=== PATIENT | male | born 1925 | race Caucasian/White ===

== ENCOUNTER 2017-03-04 20:18 | Inpatient (IN) | payer MEDICARE ==
[~2017-03-04] VITALS: Ht 176.5 cm; Wt 64.5 kg
[~2017-03-04 20:18] MED LIST: ASPI-351 PO; CLOP75TA14 PO; Enalapril; LOPRESSOR25 MG PO; NITR0.4T SL; PRA20 PO
--- NOTE | 2017-03-04 20:23 | ED.REPORT ---
HPI-Extremity Problem Lower Date of Service Mar 04, 2017 ED Provider: Devonte Dowling DO The pt is a 89 y/o male w/ a hx of chronic RLE edema and wound presenting into the ED via ambulance complaining of worsening chronic RLE pain and swelling. The pt's PCP instructed him to come to the ED due to recent extension of the redness past his knee. He denies fever and chills. He was recently seen at [facility] for cellulitis and put on antibiotics, possibly Keflex. His symptoms have continued to worsen since. Nursing Notes Stated Complaint: RIGHT FOOT REDNESS AND SWELLING Nursing Notes Reviewed: Yes Allergies: Coded Allergies: No Known Allergies (Unverified Allergy, Unknown, 03/04/17) Scheduled Allopurinol (Allopurinol) 100 Mg Tablet 100 MG PO DAILY Aspirin Chew (Aspirin Chew) 81 Mg Chew 81 MG PO DAILY Clopidogrel (Clopidogrel) 75 Mg Tablet 75 MG PO DAILY Enalapril Maleate (Enalapril Maleate) 5 Mg Tablet 5 MG PO DAILY Metoprolol Tartrate (Metoprolol Tartrate) 25 Mg Tablet 12.5 MG PO BID Pravastatin (Pravastatin) 20 Mg Tablet 20 MG PO HS Tamsulosin (Flomax) 0.4 Mg Capsule 0.4 MG PO HS Scheduled PRN Nitroglycerin SL (Nitroglycerin SL) 0.4 Mg Tab.subl 0.4 MG SL Q5MIN PRN PRN For Chest Pain General Time Seen by MD: 20:23 Chief Complaint Other (RLE edema) Hx Obtained From: Patient Arrived By: Ambulance Onset Occurred: 2 days ago Symptom Duration: Since onset Recent Healthcare: No recent hospitalization, Recent doctor visit Similar Sx Previous: Yes Past Medical History Past Medical History chronic RLE edema and wound kidney stones depression Past Surgical History L eye surgery Smoking History Unknown if Ever Smoker Ambulatory Status Independent Review of Systems Review of Systems Note: RLE redness Constitutional: Denies: Chills, Fever Musculoskeletal: Reports: Extremity pain (RLE ), Extremity swelling (RLE ) Complete sys rev & neg: except as marked. Physical Exam Initial Vital Signs Vital Signs (First) Date Time Temp Pulse Resp B/P Pulse Ox O2 Delivery O2 Flow Rate FiO2 03/04/17 20:28 36.2 69 16 188/79 96 Room Air Initial VS: Reviewed General/Constitutional: Well-developed, Well-nourished Head / Eyes: Atraumatic, Normocephalic, PERRL ENT: Mucous membranes moist, Conjunctiva normal, No scleral icterus Neck: Supple, Non-tender, Full range of motion Respiratory: Breath sounds normal, Clear to auscultation, No respiratory distress Cardiovascular: Regular rate & rhythm, Heart sounds normal, Intact distal pulses Abdomen / GI: Soft, Non-tender Back: No CVA tenderness Skin: Warm, Dry, No cyanosis Neurologic: Alert, Oriented, Nonfocal Psychiatric: Mood/affect normal, Behavior normal, Normal thought content Lower Extremity / Pelvis / MS: Atraumatic, Full range of motion Pitting edema from R proximal patella down to foot Red, warm, and tender to touch No abscess Ankle / Foot: Atraumatic, Full range of motion Interpretation & Diagnostics Interpretation & Diagnostics: PROCEDURE: US VEINOUS LEG DUPLEX UNILATERAL, RIGHT IMPRESSION: No evidence of deep vein thrombosis involving the right lower extremity. Dictated by: Ruth Rodriguez MD, PhD on 03/04/2017 at 22:02 Approved by: Ruth Rodriguez MD, PhD on 03/04/2017 at 22:04 EXAM: US right lower extremity venous Doppler Impression: No evidence for deep venous thrombosis in the veins examined of the right lower extremity. Lab Results Interpretation Result Diagram: 03/04/17203403/04/172034 Test 03/04/17 20:35 03/04/17 22:34 White Blood Count 6.0th/mm3 (3.8-10.1) Red Blood Count 4.52mil/mm3 (4.40-5.80) Hemoglobin 13.9g/dL (13.8-17.2) Hematocrit 42.3% (41.0-50.0) Mean Corpuscular Volume 93.6fL (81-100) Mean Corpuscular Hemoglobin 30.8pg (27.0-35.0) Mean Corpuscular Hemoglobin Concent 32.9% (32.0-37.0) Red Cell Distribution Width 14.2% (12.3-15.4) Platelet Count 192bil/L (150-400) Neutrophils (%) (Auto) 66.1% (40-74) Lymphocytes (%) (Auto) 18.8% (14-46) Monocytes (%) (Auto) 14.1% (4-12) Eosinophils (%) (Auto) 0.8% (0-5) Basophils (%) (Auto) 0% (0-3) Sodium Level 140mEq/L (134-144) Potassium Level 4.1mEq/L (3.5-5.2) Chloride Level 103mEq/L (97-108) Carbon Dioxide Level 24mmol/L (18-29) Blood Urea Nitrogen 29mg/dL (8-27) Creatinine 0.73mg/dL (0.76-1.27) Estimat Glomerular Filtration Rate 108mL/min (>59) Glucose Level 116mg/dL (60-99) Lactic Acid Level 1.0mmol/L (0.4-2.0) Calcium Level 9.8mg/dL (8.5-10.1) Total Bilirubin 0.8mg/dL (0.0-1.2) Aspartate Amino Transf (AST/SGOT) 15U/L (0-50) Alanine Aminotransferase (ALT/SGPT) 13U/L (0-44) Alkaline Phosphatase 83U/L (25-160) Total Protein 7.4g/dL (6.4-8.4) Albumin 4.2g/dL (3.4-5.0) Hold Urine Received (Received) Pulse Oximetry Interpretation Pulse Oximetry Interpretation: 96% on room air Pulse Oximetry: Pulse Ox normal Pulse Oximetry Interpretation: 99% on room air Pulse Oximetry: Pulse Ox normal Pulse Oximetry Interpretation: 99% on room air Pulse Oximetry: Pulse Ox normal Re-Eval/Medical Decision Med Decision/Clinical Course The patient was evidently on an antibiotic, presumably Keflex. However he has been experiencing increased erythema and will now be admitted for antibiotics. Source of Hx: Old records Re-Evaluation/Progress : Time of Eval: 22:47 Patient Status: Condition improved Re-Evaluation/Progress Note: Pt rechecked, who is comfortable. Consultation : Referral / Consult Name: Yehuda Quigley MD Consulted With: Hospitalist Call Returned at: 22:58 Residential Care Officer: Agrees with eval, Agrees with plan, Accepts admit Note: Spoke with Dr. Quigley, hospitalist, regarding pt's case. Dr. Quigley agrees with the evaluation and agrees to admit the pt. Counseled Regarding: Diagnosis, Lab results, Need for admission Discharge & Departure Impression: Primary Impression: Cellulitis Site of cellulitis: extremity Site of cellulitis of extremity: lower extremity Laterality: right Qualified Code: L03.115 - Cellulitis of right lower limb Disposition: ADMITTED TO HOSPITAL Discharge Condition All VS Reviewed: Yes Condition: Stable Scribe Attestation Portions of this note were transcribed by Tre Downing and Kayla Ford. I, Dr. Dowling personally performed the history, physical exam and medical decision-making ; I reviewed and confirmed the accuracy of the information in the transcribed note. Signed by: Florencia Mac, 03/05/17 and 0008. Devonte Dowling DO Mar 04, 2017 20:23 Tre Downing Mar 04, 2017 21:58 KAYLA FORD Mar 04, 2017 23:36 Devonte Dowling DO Mar 04, 2017 20:23 Tre Downing Mar 04, 2017 21:58 KAYLA FORD Mar 04, 2017 23:36
[2017-03-04 20:28] VITALS: BP 188/79; PULSE 69; RESP 16; O2SAT 96
[2017-03-04 20:46] LABS: BASOPHILS % (AUTO) 0 % (0-3); EOSINOPHILS % (AUTO) 0.8 % (0-5); MONOCYTES % (AUTO) 14.1 % (4-12); Mean Corpuscular Hemoglobin 30.8 pg (27.0-35.0); Mean Corpuscular Volume 93.6 fL (81-100); NEUTROPHILS % (AUTO) 66.1 % (40-74); Platelet Count 192 bil/L (150-400)
[2017-03-04] MEDS ORDERED: cefTRIAXone Inj 2,000 MG in Dextrose 5% Minibag Plus 50 ML IV ONE (22:00)
--- NOTE | 2017-03-04 22:05 | DRSVH ---
PROCEDURE: US VEINOUS LEG DUPLEX UNILATERAL, RIGHT INDICATIONS: right leg edema and erythema TECHNIQUE: Real-time imaging, as well as color and pulse Doppler interrogation, were performed of the lower extr emity deep veins from the inguinal ligament to the popliteal fossa. COMPARISON: None. FINDINGS: The deep veins are normally compressible, and free of intraluminal thrombus. Color and pu lse Doppler demonstrate normal phasic intraluminal flow. There is normal augmentation response to di stal compression maneuver. IMPRESSION: No evidence of deep vein thrombosis involving the right lower extremity. Dictated by: Ruth Rodriguez MD, PhD on 03/04/2017 at 22:02 Approved by: Ruth Rodriguez MD, PhD on 03/04/2017 at 22:04
[2017-03-04] MEDS ORDERED: Vancomycin Inj 1,500 MG in 0.9% Sodium Chloride 500 ML IV ONE (22:16)
[2017-03-04 22:43] VITALS: BP 167/73; PULSE 68; RESP 16; O2SAT 99
[2017-03-04 23:04] VITALS: BP 167/73; PULSE 68; RESP 16; O2SAT 99
[2017-03-04] MEDS ORDERED: Polyethylene Glycol (PEG) 17 Gm Powder PO PRN (23:15)
[2017-03-04] MEDS ORDERED: Alum-Mag Hydrox-Simeth 30 mL Suspension PO PRN (23:15)
[2017-03-04] MEDS ORDERED: Ondansetron 2 mg/mL 2 mL Inj IVPUSH PRN (23:15)
--- NOTE | 2017-03-04 23:25 | PCM.HPMED ---
Subjective Date of Service Mar 04, 2017 Primary Provider: Admitting Physician: Yehuda Quigley MD Primary Care Physician: Opal Fontanez MD Attending Physician: Yehuda Quigley MD Admit Status: From the Emergency Department, Remote Telemetry Chief Complaint: Bilateral lower extremity cellulitis History of Present Illness: Mr. Strickland is a pleasant, yet not reliable historian, that presented to [facility] at the request of his primary care provider for suspected ongoing and worsening of bilateral lower extremity cellulitis, R > L. he was admitted for evaluation and treatment of bilateral lower extremity cellulitis in the setting of failed outpatient therapy. Hospital day 1 Mr. Strickland is unable to provide many details about his medical history, including other medical conditions that he has been diagnosed with, and is unable to answer succinctly to questions proposed. He does recall he was recently seen [facility] for his right lower extremity, which he says was infected. He states his symptoms began approximately 2 months ago, where he noticed some punctate lesions of unknown etiology that began weeping. He says he has received antibiotics in the past, but is unable to recall any of the names. He states that while he was at [facility], they were recommending that they place what sounds to be like a PICC line, but he refused , and was discharged on oral medications. Again, he is unable to recall the name or any specifics about outpatient medication. It also sounds as if he refused to be seen at the wound care center, due to a complication in the paperwork that they were requesting that he sign. He states that he has been taking care of the wounds himself, and denies any associated fever, chills, nausea, vomiting, abdominal pain, or any increase in pain of bilateral lower extremities. He does make a note of urinary frequency and difficulty, and he shares his experience with catheterization at [facility], and at that point in time, he noticed blood in his urine. He states that he no longer sees blood in his urine, but reports that he frequently has to get up at night to urinate. Denies any associated dysuria. In the ED, temperature 36.2, pulse 69, respiratory rate 16, blood pressure 180/ 79, 96% on room air; initial labs revealed WBC 6.0, hemoglobin 13.9, creatinine 0.73, lactic acid 1.0. Blood cultures were obtained and sent to the lab. Right venous duplex was obtained, without evidence of DVT. He was transferred to [facility] in [place] condition Review of Systems: Complete ROS obtained; pertinent positives and negatives as noted above Allergies Coded Allergies: No Known Allergies (Unverified Allergy, Unknown, 03/04/17) Home Medications Patient is unable to recall many of his home medications, but is able to recall Plavix Per ED documentation: ([Enalapril]) 5 MG DAILY Aspirin-Expunged Drug, Do Not Renew! (Aspirin-Expunged Drug, Do Not Renew!) 325 Mg Tablet 81 MG PO DAILY Clopidogrel-Expunged Drug, Do Not Renew! (Plavix-Expunged Drug, Do Not Renew!) 75 Mg Tablet 75 MG PO DAILY Metoprolol Tart-Expunged Drug, Do Not Renew! (Metoprolol Tart-Expunged Drug, Do Not Renew!) 25 Mg Tab 25 MG PO BID Nitroglycerin-Expunged Drug, Do Not Renew! (Nitroglycerin SL-Expunged Drug, Do Not Renew!) 0.4 Mg Tab.subl 0.4 MG SL PRN Pravastatin-Expunged Drug, Do Not Renew! (Pravachol-Expunged Drug, Do Not Renew! ) 20 Mg Tab 20 MG PO DAILY He is unable to recall any of the names of the previous antibiotics he has been prescribed. [facility] Patient is quite unsure of his past medical history, and cannot state any specific condition status post primary care is following him for He does recall his recent hospitalization at [place] for lower extremity cellulitis Denies any history of myocardial infarction, asthma, reflux, stroke Surgical History Unable to accurately report any seizure if he has had; denies any surgical interventions at most recent [place] [facility] admission Per ED documentation reported left eye surgery Family History Reports myocardial infarctions and heart disease Social History Hx Alcohol Use: No Hx Substance Use: No Hx Tobacco Use: No Living Arrangement: with Family (with at [place]) Exam Vital Signs Vital Sign - Last Date Time Temp Pulse Resp B/P Pulse Ox O2 Delivery O2 Flow Rate FiO2 03/04/17 23:04 36.2 68 16 167/73 99 Room Air Exam General: Alert, and oriented, pleasant, poor historian; no acute distress HEENT: Atraumatic, sclera anicteric, membranes moist Cardiac: Regular rhythm appreciated with approximately 70 bpm; no murmurs at time of examination Respiratory: Adequate airflow all mabry, no wheeze or rhonchi appreciated Abdomen: Thin, soft, nondistended, nontender Skin: Warm and dry Pulses: Radial equal and intact; bilateral dorsal pedis not palpable secondary to edema Extremities: Bilateral lower extremity erythema extending from mid tibial region to dorsi, with multiple sites of weeping and excoriation, no signs of active bleeding, patient reports these areas is nontender; poor nail hygiene; multiple small breaks in skin noticed bilaterally; bandages of left lower extremity were saturated without evidence of bleed MSK: Patient able to move or 4 extremities against gravity Neuro: Cranial nerves II through XII grossly intact, facial expression symmetric , speech without slurring Psych: Convoluted answers to some questionings, answers were somewhat appropriate but lacked in detail and were not succinct; limited insight and judgment based on advancement of symptoms Lab and Diagnostics Result Diagram: 03/04/17203403/04/172034 Assessment & Plan Mr. Strickland is a pleasant, yet not reliable historian, that presented to [facility] at the request of his primary care provider for suspected ongoing and worsening of bilateral lower extremity cellulitis, R > L. he was admitted for evaluation and treatment of bilateral lower extremity cellulitis in the setting of failed outpatient therapy. Hospital day 1 Bilateral lower extremity non-purulent cellulitis, acute, present on admission. Under evaluation - Patient reports recent hospitalization at [facility] for right lower extremity cellulitis - Was seen by PCP day of admission, recommended to go to nearest ED - Patient unable to recall outpatient medications; and denies any follow-up with wound care; denies any h/o DM or neuropathy - In ED, recv'd ceftriaxone and vancomycin - Continued: Ceftriaxone and vancomycin - Await blood cultures - ASO titer, S. pneu Ag - Labs: PCT, electrolytes, WBC - MRSA swab - Wound care consultation - Consider infectious disease consultation if no improvement in symptoms - Records request to [place] placed - PT eval for mobility Increase urinary frequency without dysuria, chronicity unknown. Under evaluation - Patient reports recent hematuria and nocturia without dysuria - DDx: May be secondary to PPH considering patient age; also consideration of UTI - UA with culture if indicated - Recommend outpatient follow-up if no infectious cause found Goals of care. - Patient appeared confused about CODE STATUS - Stated he "wants everything done" but "without heroic measures" - He did not seem to understand that CPR/intubation can be considered heroic measures - He wants to defer decision to , whom is not present - He states he has paperwork "somewhere" but "wants to try" if something were to happen - MMSE for eval for dementia given patient's inability to recall recent health history and inability to make decisions - Consider palliative consult patient remains in hospital through weekend - Recommend POLST completion PRN: Bowel/fever/pain/antiemetic DVT: Heparin every 8 Diet: General GI: Not indicated - IVF: NS 100 CODE STATUS: Full code Patient status: Due to severity of presenting symptoms, risk of adverse events, and likely course of care, anticipated length of stay is greater than 2 midnights; patient admitted as inpatient Pain Evaluation: Adequate Pain Control GI Prophylaxis: Not indicated VTE Prophylaxis: Sub-Q Heparin (Unfractionated) Resuscitation Status: CPR: Attempt Resuscitation Attending Statement The patient was seen and examined together with Dr. Ma on 03/04 and I agree with the history, exam and plan as outlined in the note above. Bilateral redness due to venous stasis changes but I believe has persistent or recurrent right leg cellulitis and agree with IV Antibiotics . Yesenia Ma DO Mar 04, 2017 23:25 Yehuda Quigley MD Mar 05, 2017 00:37
[2017-03-04] MEDS ORDERED: ENAL5TAB PO (23:40)
[2017-03-04] MEDS ORDERED: NITR0.4T6 SL (23:41)
[2017-03-04] MEDS ORDERED: CLOP75TA28 PO (23:41)
[2017-03-04] MEDS ORDERED: ZYL100 PO (23:43)
[2017-03-04] MEDS ORDERED: METO25TA6 PO (23:44)
[2017-03-04] MEDS ORDERED: TAMS0.4C98 PO (23:44)
[2017-03-04] MEDS ORDERED: PRAV20TA2 PO (23:44)
[2017-03-04] MEDS ORDERED: ASPI81TA3 PO (23:45)
[2017-03-05] VITALS (7 sets, daily range): BP systolic 129–185; BP diastolic 52–99; PULSE 60–87; RESP 16–18; O2SAT 94–100
--- NOTE | 2017-03-05 00:15 | NUR ---
Admit Pt. arrived on floor at 2355. Pt. was alert and oriented x3. IV Vancomycin going through peripheral IV. Pt. is watching orientation video. Pt. was oriented to room by MACHINIST HELPER. Pt. used commode and had a BM. Will continue to monitor.
[2017-03-05] MEDS: Heparin 5,000 Unit/mL Inj SUBQ SCH ×3 (00:30→16:30)
--- NOTE | 2017-03-05 01:17 | PCM.CONPHA ---
Subjective Date of Service: Mar 05, 2017 Requesting Provider: Yesenia Ma DO Bilateral lower extremity cellulitis Reason for Pharmacy Consult: Vancomycin Dosing Objective Vital Signs Date Time Temp Pulse Resp B/P Pulse Ox O2 Delivery O2 Flow Rate FiO2 03/04/17 23:04 36.2 68 16 167/73 99 Room Air 03/04/17 22:43 68 16 167/73 99 03/04/17 20:28 36.2 69 16 188/79 96 Room Air Weight (Kilograms): 65.91 Height (Feet): 5 Height (Inches): 10 Test 03/04/17 20:35 03/04/17 22:34 White Blood Count 6.0th/mm3 (3.8-10.1) Red Blood Count 4.52mil/mm3 (4.40-5.80) Hemoglobin 13.9g/dL (13.8-17.2) Hematocrit 42.3% (41.0-50.0) Mean Corpuscular Volume 93.6fL (81-100) Mean Corpuscular Hemoglobin 30.8pg (27.0-35.0) Mean Corpuscular Hemoglobin Concent 32.9% (32.0-37.0) Red Cell Distribution Width 14.2% (12.3-15.4) Platelet Count 192bil/L (150-400) Neutrophils (%) (Auto) 66.1% (40-74) Lymphocytes (%) (Auto) 18.8% (14-46) Monocytes (%) (Auto) 14.1% (4-12) Eosinophils (%) (Auto) 0.8% (0-5) Basophils (%) (Auto) 0% (0-3) Sodium Level 140mEq/L (134-144) Potassium Level 4.1mEq/L (3.5-5.2) Chloride Level 103mEq/L (97-108) Carbon Dioxide Level 24mmol/L (18-29) Blood Urea Nitrogen 29mg/dL (8-27) Creatinine 0.73mg/dL (0.76-1.27) Estimat Glomerular Filtration Rate 108mL/min (>59) Glucose Level 116mg/dL (60-99) Lactic Acid Level 1.0mmol/L (0.4-2.0) Calcium Level 9.8mg/dL (8.5-10.1) Total Bilirubin 0.8mg/dL (0.0-1.2) Aspartate Amino Transf (AST/SGOT) 15U/L (0-50) Alanine Aminotransferase (ALT/SGPT) 13U/L (0-44) Alkaline Phosphatase 83U/L (25-160) Total Protein 7.4g/dL (6.4-8.4) Albumin 4.2g/dL (3.4-5.0) Procalcitonin 0.05ng/mL (0.00-0.08) Hold Urine Received (Received) Assessment/Plan Assessment/Plan A: * Vancomycin dosing by pharmacy for 89 y/o man with bilateral lower extremity non-purulent cellulitis * The patient was given a 1500 mg IV vancomycin dose in the ED * He is also being started on ceftriaxone * Estimated CrCl for this patient is 64 mL/min (Cockcroft & Gault) * Estimated vancomycin half-life is 12 hours and estimated Vd is 46 liters P: * Starting vancomycin 500 mg IV every 12 hours * Target a vancomycin trough range of 10 - 15 mcg/mL * Drawing a trough level prior to the fourth dose Thank you. Pharmacy will continue to follow this patient. Delfina Edwards, PharmD Delfina Edwards Mar 05, 2017 01:17
[2017-03-05] MEDS: 0.9% Sodium Chloride 1,000 ML IV SCH ×3 (01:25→22:56)
[2017-03-05 06:25] LABS: BASOPHILS % (AUTO) 0 % (0-3); EOSINOPHILS % (AUTO) 2.9 % (0-5); MONOCYTES % (AUTO) 19.2 % (4-12); Mean Corpuscular Hemoglobin 30.8 pg (27.0-35.0); Mean Corpuscular Volume 94.2 fL (81-100); NEUTROPHILS % (AUTO) 61.1 % (40-74); Platelet Count 179 bil/L (150-400)
[2017-03-05 06:45] LABS: Magnesium 2.1 mg/dL (1.6-2.6); Phosphorus 2.9 mg/dL (2.5-4.9)
[2017-03-05] MEDS: Vancomycin Dose per Pharmacist XX SCH (08:30)
[2017-03-05] MEDS: Vancomycin Inj 500 MG in 0.9% Sodium Chloride 100 ML IV SCH (11:35)
--- NOTE | 2017-03-05 12:56 | PCM.PNMED ---
Subjective Date of Service Mar 05, 2017 Subjective Patient is seen and examined. His perseverating on his Acer[employer] and animals, does not seem to recall many details about his history appears to have both short-term and long-term loss. [facility] He needs to figure out how to self his property. He did not answer many questions about his cellulitis and what kind of treatment was done in the past. Unable to provide health history or medication history. Exam Vital Signs Vital Sign - Last Date Time Temp Pulse Resp B/P Pulse Ox O2 Delivery O2 Flow Rate FiO2 03/05/17 08:00 61 03/05/17 06:00 36.5 16 159/68 98 Room Air Intake and Output 03/04/17 03/04/17 03/05/17 Cumulative From/Thru 15:00 23:00 07:00 03/04/17 20:28 - 03/05/17 06:52 Intake Total 1091 ml 1091 ml Output Total 325 ml 325 ml Balance 766 ml 766 ml Intake Oral 100 ml 100 ml IV Total 991 ml 991 ml Output Urine Total 325 ml 325 ml # Voids 1 1 # Bowel Movements 1 1 Exam Gen. pleasant elderly male HEENT normocephalic, atraumatic Skin: Erythema spreading all the way up into mid thigh on the right side side medially, and the left side it slightly about the knee posteriorly but not as bad. 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 Strickland is a pleasant, yet not reliable historian, that presented to [facility] at the request of his primary care provider for suspected ongoing and worsening of bilateral lower extremity cellulitis, R > L. he was admitted for evaluation and treatment of bilateral lower extremity cellulitis in the setting of failed outpatient therapy. Hospital day 1 Bilateral lower extremity non-purulent cellulitis, acute, present on admission. Under evaluation - Patient reports recent hospitalization at [facility] for right lower extremity cellulitis - Was seen by PCP day of admission, recommended to go to nearest ED - Patient unable to recall outpatient medications; and denies any follow-up with wound care; denies any h/o DM or neuropathy - In ED, recv'd ceftriaxone and vancomycin - Continued: Ceftriaxone and vancomycin - Await blood cultures - ASO titer, S. pneu Ag - Labs: PCT, electrolytes, WBC - MRSA swab - Wound care consultation - Consider infectious disease consultation if no improvement in symptoms - Records request to [place] placed - PT eval for mobility -- Requested PCP records and his [facility], visit records -- Ordered DVT ultrasound of the left leg: Negative Increase urinary frequency without dysuria, chronicity unknown. Under evaluation - Patient reports recent hematuria and nocturia without dysuria - DDx: May be secondary to PPH considering patient age; also consideration of UTI - UA with culture if indicated - Recommend outpatient follow-up if no infectious cause found Goals of care. - Patient appeared confused about CODE STATUS - Stated he "wants everything done" but "without heroic measures" - He did not seem to understand that CPR/intubation can be considered heroic measures - He wants to defer decision to , whom is not present - He states he has paperwork "somewhere" but "wants to try" if something were to happen - Consider palliative consult patient remains in hospital through weekend - Recommend POLST completion -- Patient has no assigned power of banking attorney. -- Called son Khoa at his home phone number, he says that his goal is that patient goes back to living in an independent setting as before. He feels that his dad may have suffered a small stroke and some left-sided arm weakness as a result few days ago while visiting [facility]. But generally does not think his dad had any medical attention for it, he also says that his dad declined wound care follow-up. Patient does receive home care to help per khoa. PRN: Bowel/fever/pain/antiemetic DVT: Heparin every 8 Diet: General GI: Not indicated - IVF: NS 50 CODE STATUS: Full code Patient status: Due to severity of presenting symptoms, risk of adverse events, and likely course of care, anticipated length of stay is greater than 2 midnights; patient admitted as inpatient Pain Evaluation: Adequate Pain Control GI Prophylaxis: Not indicated VTE Prophylaxis: Sub-Q Heparin (Unfractionated) Resuscitation Status: CPR: Attempt Resuscitation Bettie Slaughter DO Mar 05, 2017 09:48
--- NOTE | 2017-03-05 13:00 | NUR ---
Evaluation completed. Please go to "Notes" then click on "Assessments and Notes" (bottom left corner of screen). Then select appropriate discipline tab on top of screen.
--- NOTE | 2017-03-05 13:54 | NUR ---
Social Work: Initial assessment Data & Assessment: EMR reviewed. Pt is a 89 y/o male admitted for cellulitis right leg per H&P. Pt's insurance is [employer] by [facility] and PCP is Opal Fontanez MD. SW met with pt at bedside to complete initial assessment. SW role explained role and discussed discharge planning. Pt was alert and oriented. Pt has no VA or LTC insurance. Pt has no history of stay at a SNF. PT recommended that pt continue HH services at discharge. Pt stated he currently has HH services through [facility]. SW called to confirm pt is open with RN/OT/CNC MANAGER through [facility]. Pt has completed DPOA/advanced directive and SW encouraged pt to provide a copy to the hospital. Pt confirmed DPOA is son Kyree. Pt lives in a 1-story home with two external steps leading to the entrance. Pt lives at home with use of DME (walker). Pt states that he drives. Pt is independent at baseline. Pt's currently resides at [facility]. Pt confirmed son Kyree (DPOA) will provide transport via POV at time of discharge. Social work will continue to follow Plan: Pt will likely discharge home with resume [facility] and continue RN/PT/CNC MANAGER. Pt's son will provide transport via POV at time of discharge. Social work will continue to follow. JOHN Ho
--- NOTE | 2017-03-05 16:10 | DRSVH ---
PROCEDURE: US VEINOUS LEG DUPLEX UNILATERAL, LEFT INDICATIONS: cellulits, swelling TECHNIQUE: Real-time imaging, as well as color and pulse Doppler interrogation, were performed of the lower extr emity deep veins from the inguinal ligament to the popliteal fossa. COMPARISON: None. FINDINGS: The deep veins are normally compressible, and free of intraluminal thrombus. Color and pu lse Doppler demonstrate normal phasic intraluminal flow. There is normal augmentation response to di stal compression maneuver. IMPRESSION: No DVT found left leg. Dictated by: Bowen Marcum M.D. on 03/05/2017 at 16:08 Approved by: Bowen Marcum M.D. on 03/05/2017 at 16:08
--- NOTE | 2017-03-05 18:22 | NUR ---
Skin- Patient has redness in both lower extremities with some scabbed over sores and some open areas, and they are tender to touch. Patient's scrotum is also reddened and there are some small open areas where patient said he had picked off scaly patches. Patient also has some urinary incontinence, that he says irritates his skin. Calmoseptine ointment applied. Tylenol given for discomfort with good relief
[2017-03-05] MEDS ORDERED: cefTRIAXone Inj 2,000 MG in Dextrose 5% Minibag Plus 50 ML IV SCH (23:00)
[2017-03-06] VITALS (10 sets, daily range): BP systolic 145–192; BP diastolic 45–83; PULSE 56–80; RESP 14–18; O2SAT 98–100
[2017-03-06] MEDS: Heparin 5,000 Unit/mL Inj SUBQ SCH ×3 (00:30→11:45)
[2017-03-06] MEDS: Vancomycin Inj 500 MG in 0.9% Sodium Chloride 100 ML IV SCH (00:31)
--- NOTE | 2017-03-06 05:13 | NUR ---
Assumed care Assumed care of Pt from previous nurse, report given. Checked on Pt and he was reading, stated he has no pain and is doing well, "other than urinating too much", he was unaware that he was running IV fluids that would cause him to urinate despite him not taking PO fluids. Care continues
[2017-03-06 07:25] LABS: Mean Corpuscular Hemoglobin 30.4 pg (27.0-35.0); Mean Corpuscular Volume 94.1 fL (81-100)
[2017-03-06] MEDS: Vancomycin Dose per Pharmacist XX SCH (08:30)
[2017-03-06 09:43] LABS: APPEARANCE,URINE CLEAR (CLEAR,HAZY); COLOR,URINE YELLOW (YELLOW); OCCULT BLOOD,URINE NEGATIVE (NEGATIVE); UROBILINOGEN,URINE NORMAL (NORMAL)
[2017-03-06] MEDS ORDERED: Vancomycin Serum Trough XX ONE (10:30)
[2017-03-06] MEDS ORDERED: Vancomycin Inj 750 MG in 0.9% Sodium Chloride 250 ML IV SCH (12:00)
[2017-03-06] MEDS: Piperacillin-Tazo 3.375 Gm Inj 3.375 GM in Dextrose 5% Minibag Plus 50 ML IV SCH (16:05)
--- NOTE | 2017-03-06 16:06 | NUR ---
Social Work: Continued Discharge Planning Data and Assessment: Pt is on day 2 of hospitalization. CAMERON reviewed PT evaluation. Pt is ambulating regularly. PT recommends HH at discharge. MD expressed concerns about pt possibly needing a higher level of fpc care at discharge. CAMERON called osiel Adorno (main point of contact [phone]) regarding MD's concerns and discharge planning. CAMERON confirmed that Kyree will be able to provide pt transport home via POV at time of discharge. CAMERON also confirmed that osiel will be able to stay with pt at home for the first 1-2 days after discharge. Son requested that SW follow-up with him regarding time/date of discharge as discharge approaches. SW will continue to follow. Plan: CAMERON confirmed osiel Adorno will provide pt transport home via POV when pt is medically stable. CAMERON will update osiel Adorno as pt gets closer to discharge date/time. CAMERON provided osiel with phone number and added transport plan to [employer]. JOHN Ho Addendum: 03/06/17 at 1619 by RONI PENALOZA JOHN will follow-up with MD about concerns and determine if pt would benefit from receiving [facility] care resources/information.
--- NOTE | 2017-03-06 22:01 | PCM.PNMED ---
Subjective Date of Service Mar 06, 2017 Subjective Patient is seen and examined. He is his usual self. I have informed them about the deep tissue culture, and he is not bothered by it. He is not on the proper antibiotics here based on his cultures from his previous hospital admission at [facility]. Prior to changing his antibiotics, a deep tissue culture from the wound is warranted. He denies any other problems. Exam Vital Signs Vital Sign - Last Date Time Temp Pulse Resp B/P Pulse Ox O2 Delivery O2 Flow Rate FiO2 03/06/17 13:28 36.9 63 17 145/55 99 Room Air Intake and Output 03/05/17 03/05/17 03/06/17 Cumulative From/Thru 15:00 23:00 07:00 03/04/17 20:28 - 03/06/17 06:09 Intake Total 1933 ml 877 ml 3901 ml Output Total 1000 ml 1325 ml Balance 933 ml 877 ml 2576 ml Intake Oral 826 ml 926 ml IV Total 1107 ml 877 ml 2975 ml Output Urine Total 1000 ml 1325 ml # Voids 1 # Bowel Movements 1 Exam Gen. pleasant elderly male HEENT normocephalic, atraumatic Skin: Erythema spreading all the way up into mid thigh on the right side side medially, and the left side it slightly about the knee posteriorly but not as bad. 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 Strickland is a pleasant, yet not reliable historian, that presented to [facility] at the request of his primary care provider for suspected ongoing and worsening of bilateral lower extremity cellulitis, R > L. he was admitted for evaluation and treatment of bilateral lower extremity cellulitis in the setting of failed outpatient therapy. Hospital day 1 Bilateral lower extremity non-purulent cellulitis, acute, present on admission. Under evaluation - Patient reports recent hospitalization at [facility] for right lower extremity cellulitis - Was seen by PCP day of admission, recommended to go to nearest ED - Patient unable to recall outpatient medications; and denies any follow-up with wound care; denies any h/o DM or neuropathy - In ED, recv'd ceftriaxone and vancomycin - Continued: Ceftriaxone and vancomycin - Await blood cultures - ASO titer, S. pneu Ag - Labs: PCT, electrolytes, WBC - MRSA swab - Wound care consultation - Consider infectious disease consultation if no improvement in symptoms - Records request to [facility] placed - PT eval for mobility -- Requested PCP records and his [facility], visit records -- Ordered DVT ultrasound of the left leg: Negative -- Records from his [facility] admission are obtained and reviewed. He apparently had VRE sensitive to Augmentin, Pseudomonas sensitive to Cipro based on the cultures and this is what they had discharged him on. Patient states that he completed the course. -- Deep tissue wound culture is obtained sent to the lab. He started on Zosyn, again based on his cultures from [facility] admission -- We will follow the new cultures to make sure he is appropriately treated Increase urinary frequency without dysuria, chronicity unknown. Under evaluation - Patient reports recent hematuria and nocturia without dysuria - DDx: May be secondary to BP PH considering patient age; also consideration of UTI - UA with culture if indicated - Recommend outpatient follow-up if no infectious cause found -- Previous hospitalization records show hematuria thought to be secondary to BPH Goals of care. - Patient appeared confused about CODE STATUS - Stated he "wants everything done" but "without heroic measures" - He did not seem to understand that CPR/intubation can be considered heroic measures - He wants to defer decision to , whom is not present - He states he has paperwork "somewhere" but "wants to try" if something were to happen - Consider palliative consult patient remains in hospital through weekend - Recommend POLST completion -- Patient has no assigned power of family law attorney. -- Called son Khoa at his home phone number, he says that his goal is that patient goes back to living in an independent setting as before. He feels that his dad may have suffered a small stroke and some left-sided arm weakness as a result few days ago while visiting his at the skilled nursing. But generally does not think his dad had any medical attention for it, he also says that his dad declined wound care follow-up. Patient does receive home care to help per khoa. -- Patient's other son aubrey who lives in [facility] is more involved in patient's care but we do not currently have his number, patient could not recall either PRN: Bowel/fever/pain/antiemetic DVT: Heparin every 8 Diet: General GI: Not indicated - IVF: NS 50 CODE STATUS: Full code Patient status: Due to severity of presenting symptoms, risk of adverse events, and likely course of care, anticipated length of stay is greater than 2 midnights; patient admitted as inpatient GI Prophylaxis: Not indicated VTE Prophylaxis: Sub-Q Heparin (Unfractionated) VTE Mechanical Devices: Intermittant Pneumatic CD Resuscitation Status: CPR: Attempt Resuscitation Bettie Slaughter DO Mar 06, 2017 13:58
[2017-03-06] MEDS: 0.9% Sodium Chloride 1,000 ML IV SCH (23:59)
[2017-03-07] VITALS (7 sets, daily range): BP systolic 158–176; BP diastolic 66–94; PULSE 52–80; RESP 16–20; O2SAT 98–100
[2017-03-07] MEDS: Heparin 5,000 Unit/mL Inj SUBQ SCH ×3 (00:15→10:16)
[2017-03-07] MEDS: Piperacillin-Tazo 3.375 Gm Inj 3.375 GM in Dextrose 5% Minibag Plus 50 ML IV SCH ×3 (00:15→17:23)
--- NOTE | 2017-03-07 04:05 | NUR ---
Bilateral Leg Redness Patients legs are extremely red and edematous. No sign of anasarca. Patient able to ambulate to BR. Patient states no pain and refused pain medication. VSS. Call light within reach. Care continues.
[2017-03-07 06:26] LABS: Mean Corpuscular Hemoglobin 30.5 pg (27.0-35.0); Mean Corpuscular Volume 92.5 fL (81-100)
--- NOTE | 2017-03-07 09:02 | NUR ---
Refuses heparin Pt refuses heparin. educated and explains its purpose. Pt continues to refuse heparin. Care continues. Encouraged pt to move legs while sitting or laying in bed often.
--- NOTE | 2017-03-07 16:02 | NUR ---
Wound Care [facility] Patient evaluated for venous stasis ulcers to bilateral legs. Patient reports longer history of treatment by home health nursing 3x/week to right leg. Reports he was 'afraid to tell them about the left leg' and it continued to get worse. Patient instructed to always notify health care team about skin changes TIMOTHY. Venous stasis ulcers to right leg resolving. Redness marked on bilateral legs at admit significantly improved. Left leg with open area anteriorly measuring 7.5cmL x 7.9cmW x 0.1cmD. Dry flaking skin present to most of leg and moderate serous weeping drainage noted to open area. Open area with 25% slough and 75% pale red wound bed. Cleaned with warm, soapy washcloth and rinsed. Applied vaseline. Covered open area with AquacelAG, secured with kerlix and plastic tape. Right leg with multiple small open areas noted, as well as 2 small intact blisters laterally. Excoriated and dry area to right medial ankle measures 5cmL x 1cmW with intact dry skin. Right anterior leg with 0.2cmL x 0.2cmW x <0.1cmD dark red open area with scant bloody drainage. Right anterior tibialis area with 2cmL x 2cmW intact scab. Cleaned with warm, soapy washcloth and rinsed. Applied vaseline and covered with kerlix, secured with plastic tape. Nursing to change dressing q48 hours and PRN soiling. Wound care to follow up as needed. Patient reports areas he "picked" due to dry skin on scrotum. Declines to allow customs compliance specialist to assess. States it is improving with use of "cream" by nursing. Patient declines all other skin assessment. Venous stasis ulcers to bilateral legs present on admission.
[2017-03-07] MEDS: 0.9% Sodium Chloride 1,000 ML IV SCH (17:40)
--- NOTE | 2017-03-07 21:39 | PCM.PNMED ---
Subjective Date of Service Mar 07, 2017 Subjective Patient did not want me to examine his legs today as he has wound care dressings. I have told him that the reason for his admission is his cellulitis , I will be checking them by slightly moving the bandages today, for tomorrow I believe open the dressing to look at it, he is agreeable to this plan. He says he is much better however, no concerns, he is picking his dinner menu Exam Vital Signs Vital Sign - Last Date Time Temp Pulse Resp B/P Pulse Ox O2 Delivery O2 Flow Rate FiO2 03/07/17 00:25 36.7 64 16 176/94 99 Room Air Intake and Output 03/06/17 03/06/17 03/07/17 Cumulative From/Thru 15:00 23:00 07:00 03/04/17 20:28 - 03/07/17 04:21 Intake Total 0 ml 954 ml 4855 ml Output Total 500 ml 950 ml 2775 ml Balance -500 ml 4 ml 2080 ml Intake Oral 0 ml 400 ml 1326 ml IV Total 554 ml 3529 ml Output Urine Total 500 ml 950 ml 2775 ml # Voids 1 2 # Bowel Movements 1 2 Exam Gen. pleasant elderly male HEENT normocephalic, atraumatic Skin: Erythema spreading all the way up into mid thigh on the right side side medially, and the left side it slightly about the knee posteriorly but not as bad. He denies tenderness to palpation Extremities: Much improved today, his redness is much below the demarcated lines. Swelling improved as well. His feet are normal temperature to touch. 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 Psych: Negative for anxiety MSK: 4+ out of 5 bilaterally in lower extremities IVs and Medications Medications Reviewed: Medications were reviewed in detail Lab and Diagnostics Laboratory Tests Test 03/07/17 05:25 White Blood Count 5.4th/mm3 (3.8-10.1) Red Blood Count 4.39mil/mm3 (4.40-5.80) Hemoglobin 13.4g/dL (13.8-17.2) Hematocrit 40.6% (41.0-50.0) Mean Corpuscular Volume 92.5fL (81-100) Mean Corpuscular Hemoglobin 30.5pg (27.0-35.0) Mean Corpuscular Hemoglobin Concent 33.0% (32.0-37.0) Red Cell Distribution Width 13.8% (12.3-15.4) Platelet Count 195bil/L (150-400) Sodium Level 140mEq/L (134-144) Potassium Level 4.2mEq/L (3.5-5.2) Chloride Level 105mEq/L (97-108) Carbon Dioxide Level 21mmol/L (18-29) Blood Urea Nitrogen 17mg/dL (8-27) Creatinine 0.78mg/dL (0.76-1.27) Estimat Glomerular Filtration Rate 100mL/min (>59) Glucose Level 115mg/dL (60-99) Calcium Level 9.2mg/dL (8.5-10.1) Total Bilirubin 0.6mg/dL (0.0-1.2) Aspartate Amino Transf (AST/SGOT) 17U/L (0-50) Alanine Aminotransferase (ALT/SGPT) 12U/L (0-44) Alkaline Phosphatase 86U/L (25-160) Total Protein 6.3g/dL (6.4-8.4) Albumin 3.7g/dL (3.4-5.0) Microbiology 03/04/17 Blood Culture - Preliminary, Resulted No growth at 2 days; culture examined... 03/04/17 MRSA (PCR) - Final, Complete 03/04/17 Streptococcus pneumoniae Ag Screen - Final, Complete 03/06/17 Gram Stain - Final, Resulted 03/06/17 Culture & Sensitivity - Preliminary, Resulted LIGHT NORMAL HEIKE PRESENT 03/06/17 Anaerobic Culture, Resulted Pending Result Diagram: 03/06/17 0710 03/06/17 0710 Assessment & Plan Mr. Strickland is a pleasant, yet not reliable historian, that presented to [facility] at the request of his primary care provider for suspected ongoing and worsening of bilateral lower extremity cellulitis, R > L. he was admitted for evaluation and treatment of bilateral lower extremity cellulitis in the setting of failed outpatient therapy. Hospital day 1 Bilateral lower extremity non-purulent cellulitis, acute, present on admission. Under evaluation - Patient reports recent hospitalization at [facility] for right lower extremity cellulitis - Was seen by PCP day of admission, recommended to go to nearest ED - Patient unable to recall outpatient medications; and denies any follow-up with wound care; denies any h/o DM or neuropathy - In ED, recv'd ceftriaxone and vancomycin - Continued: Ceftriaxone and vancomycin - Await blood cultures - ASO titer, S. pneu Ag - Labs: PCT, electrolytes, WBC - MRSA swab - Wound care consultation - Consider infectious disease consultation if no improvement in symptoms - Records request to [facility] placed - PT eval for mobility -- Requested PCP records and his [facility], visit records -- Ordered DVT ultrasound of the left leg: Negative -- Records from his [facility] admission are obtained and reviewed. He apparently had VRE sensitive to Augmentin, Pseudomonas sensitive to Cipro based on the cultures and this is what they had discharged him on. Patient states that he completed the course. -- Deep tissue wound culture is obtained sent to the lab. He started on Zosyn, again based on his cultures from [place] admission -- We will follow the new cultures to make sure he is appropriately treated: Few gram-positive cocci, variable gram-negative rods -- Clinically has improved today Increase urinary frequency without dysuria, chronicity unknown. Under evaluation - Patient reports recent hematuria and nocturia without dysuria - DDx: May be secondary to BP PH considering patient age; also consideration of UTI - UA with culture if indicated - Recommend outpatient follow-up if no infectious cause found -- Previous hospitalization records show hematuria thought to be secondary to BPH Goals of care. 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 -- Called son Lon at his home phone number, he says that his goal is that patient goes back to living in an independent setting as before. He feels that his dad may have suffered a small stroke and some left-sided arm weakness as a result few days ago while visiting his [facility]. But generally does not think his dad had any medical attention for it, he also says that his dad declined wound care follow-up. Patient does receive home care to help per lon. -- Patient's other son aubrey who lives in [facility] is more involved in patient's care but we do not currently have his number, patient could not recall either PRN: Bowel/fever/pain/antiemetic DVT: Heparin every 8 Diet: General GI: Not indicated - IVF: NS 50 CODE STATUS: Full code Patient status: Due to severity of presenting symptoms, risk of adverse events, and likely course of care, anticipated length of stay is greater than 2 midnights; patient admitted as inpatient GI Prophylaxis: Not indicated VTE Prophylaxis: Sub-Q Heparin (Unfractionated) VTE Mechanical Devices: Intermittant Pneumatic CD Resuscitation Status: CPR: Attempt Resuscitation Bettie Slaughter DO Mar 07, 2017 05:47
[2017-03-07] MEDS ORDERED: Vancomycin Serum Trough XX ONE (23:30)
[2017-03-08] VITALS (8 sets, daily range): BP systolic 115–189; BP diastolic 66–81; PULSE 58–80; RESP 18–20; O2SAT 98–100
[2017-03-08] MEDS: 0.9% Sodium Chloride 1,000 ML IV SCH (00:03)
[2017-03-08] MEDS: Heparin 5,000 Unit/mL Inj SUBQ SCH ×3 (00:09→16:35)
[2017-03-08] MEDS: Piperacillin-Tazo 3.375 Gm Inj 3.375 GM in Dextrose 5% Minibag Plus 50 ML IV SCH ×3 (00:09→16:49)
--- NOTE | 2017-03-08 03:16 | NUR ---
Elevated Blood Pressure/Dressing Patients blood pressure, taken by TELEMETRY NURSE, has been 189/78 and 188/88. Dr. Quigley paged. Amlodipine ordered and administered. Patient asymptomatic. Patient's bilateral legs are wrapped with Kerlix. There is some drainage on the left front bandage. Other VSS. Call light with in reach. Care continues.
[2017-03-08 06:14] LABS: Mean Corpuscular Hemoglobin 30.3 pg (27.0-35.0); Mean Corpuscular Volume 92.4 fL (81-100)
--- NOTE | 2017-03-08 09:18 | NUR ---
ZARINA signed by kimberly Sanon
--- NOTE | 2017-03-08 09:18 | NUR ---
Social Work: Continued Discharge Planning Data: Pt is on day 4 of hospitalization. SW met with pt at bedside to confirm discharge plan. Pt is open w/[facility] for RN, PT, ORCHESTRA LEADER. Pt will continue HH at time of discharge. Confirmed son Kyree to drive pt home via POV at time of discharge. Assessment: Pt who would benefit from resume HH services. Plan: Pt will transport home with osiel Adorno via POV. Pt will resume HH through [facility] at time of discharge. JOHN Ho
--- NOTE | 2017-03-08 14:08 | PCM.PNMED ---
Subjective Date of Service Mar 08, [address] Medeiros has called she is concerned about his ability to go home after this round of cellulitis treatment. She says that she has seen him for many many years and he will not take good care of his wounds. Was not properly following up, she feels that it would be better for him to [facility] the [facility] one where his is currently residing. Patient is sitting up in chair eating lunch. He case that his legs do look much better today. He is agreeable to recuperating at [facility] if his insurance covers for it. Exam Vital Signs Vital Sign - Last Date Time Temp Pulse Resp B/P Pulse Ox O2 Delivery O2 Flow Rate FiO2 03/08/17 13:14 36.3 58 18 115/70 99 Room Air Intake and Output 03/07/17 03/07/17 03/08/17 Cumulative From/Thru 15:00 23:00 07:00 03/04/17 20:28 - 03/08/17 06:45 Intake Total 200 ml 1623 ml 724 ml 7725 ml Output Total 1300 ml 600 ml 1775 ml 6450 ml Balance -1100 ml 1023 ml -1051 ml 1275 ml Intake Oral 200 ml 920 ml 300 ml 2746 ml IV Total 703 ml 424 ml 4979 ml Output Urine Total 1300 ml 600 ml 1775 ml 6450 ml # Voids 1 2 5 # Bowel Movements 1 1 0 4 Exam Gen. pleasant elderly male HEENT normocephalic, atraumatic Extremities: Much improved today, his redness is much below the demarcated lines. Swelling improved as well. His feet are normal temperature to touch. 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 Strickland is a pleasant, yet not reliable historian, that presented to [facility] at the request of his primary care provider for suspected ongoing and worsening of bilateral lower extremity cellulitis, R > L. he was admitted for evaluation and treatment of bilateral lower extremity cellulitis in the setting of failed outpatient therapy. Hospital day 1 Bilateral lower extremity non-purulent cellulitis, acute, present on admission. Under evaluation - Patient reports recent hospitalization at [facility] for right lower extremity cellulitis - Was seen by PCP day of admission, recommended to go to nearest ED - Patient unable to recall outpatient medications; and denies any follow-up with wound care; denies any h/o DM or neuropathy - In ED, recv'd ceftriaxone and vancomycin - Continued: Ceftriaxone and vancomycin - Await blood cultures - ASO titer, S. pneu Ag - Labs: PCT, electrolytes, WBC - MRSA swab - Wound care consultation - Consider infectious disease consultation if no improvement in symptoms - Records request to [facility] - PT eval for mobility -- Requested PCP records and his [facility], visit records -- Ordered DVT ultrasound of the left leg: Negative -- Records from his [facility] admission are obtained and reviewed. He apparently had VRE sensitive to Augmentin, Pseudomonas sensitive to Cipro based on the cultures and this is what they had discharged him on. Patient states that he completed the course. -- Deep tissue wound culture is obtained sent to the lab. He started on Zosyn, again based on his cultures from [place] admission -- We will follow the new cultures to make sure he is appropriately treated: Few gram-positive cocci, variable gram-negative rods -- Clinically has improved today -- Plan to DC to [facility] tomorrow on by mouth antibiotics Hypertension, chronic -- Patient came here with 10 mg of enalapril daily, his blood pressure has been initiated during this admission. -- Currently he is on 20 mg of enalapril +5 mg of Norvasc. -- We will continue to monitor, seems to be doing better at this time Increase urinary frequency without dysuria, chronicity unknown. Under evaluation - Patient reports recent hematuria and nocturia without dysuria - DDx: May be secondary to BP PH considering patient age; also consideration of UTI - UA with culture if indicated - Recommend outpatient follow-up if no infectious cause found -- Previous hospitalization records show hematuria thought to be secondary to BPH Goals of care. - Patient appeared confused about CODE STATUS - Stated he "wants everything done" but "without heroic measures" - He did not seem to understand that CPR/intubation can be considered heroic measures - He wants to defer decision to , whom is not present - He states he has paperwork "somewhere" but "wants to try" if something were to happen - Consider palliative consult patient remains in hospital through weekend - Recommend POLST completion -- Patient has no assigned power of commercial real estate attorney. -- Called son Khoa at his home phone number, he says that his goal is that patient goes back to living in an independent setting as before. He feels that his dad may have suffered a small stroke and some left-sided arm weakness as a result few days ago while [facility]. But generally does not think his dad had any medical attention for it, he also says that his dad declined wound care follow-up. Patient does receive home care to help per khoa. -- PRN: Bowel/fever/pain/antiemetic DVT: Heparin every 8 Diet: General GI: Not indicated CODE STATUS: Full code Patient status: Due to severity of presenting symptoms, risk of adverse events, and likely course of care, anticipated length of stay is greater than 2 midnights; patient admitted as inpatient Pain Evaluation: Adequate Pain Control GI Prophylaxis: Not indicated VTE Prophylaxis: Sub-Q Heparin (Unfractionated) VTE Mechanical Devices: Intermittant Pneumatic CD Resuscitation Status: CPR: Attempt Resuscitation Bettie Slaughter DO Mar 08, 2017 13:42
--- NOTE | 2017-03-08 16:07 | NUR ---
Social Work: Readiness for Discharge Data: Pt is on day 4 of hospitalization. SW met with pt to discuss Dr. Slaughter concerns for SNF placement. Dr. Slaughter is concerned that pt will need SNF placement for wound care. SW discussed SNF options and pt declined services. Pt would like to continue RN/PT/DIELECTRIC EMBOSSING MACHINE OPERATOR open with [facility]. Pt stated that he receives wound care 3x/week with HH services. He does not think wound care is necessary at a SNF because he already receives what he needs at home. Assessment: Pt who will continue HH services open with RN/PT/DIELECTRIC EMBOSSING MACHINE OPERATOR through [facility]. Plan: Discharge home with son Kyree via POV at time of discharge. [facility] with RN/PT/DIELECTRIC EMBOSSING MACHINE OPERATOR.
--- NOTE | 2017-03-08 17:31 | NUR ---
Dressing Change Wrap dressing around bilateral lower legs changed. New wrap applied, redness reduced from previous reported levels. Patient tolerated dressing change. Some edema and redness still noted. Care is ongoing.
[2017-03-09] MEDS: Piperacillin-Tazo 3.375 Gm Inj 3.375 GM in Dextrose 5% Minibag Plus 50 ML IV SCH ×2 (00:16→08:52)
[2017-03-09] MEDS: Heparin 5,000 Unit/mL Inj SUBQ SCH ×2 (00:21→08:56)
[2017-03-09 00:24] VITALS: BP 180/84; PULSE 68; RESP 18; O2SAT 99
[2017-03-09 01:19] VITALS: BP 160/68
--- NOTE | 2017-03-09 01:32 | NUR ---
Activity Pt reporting no pain. Dressing to BLE are CDI. Pt has been up to BR with SBA and FWW, steady on feet. Pt had a BM tonight. Pt refused Heparin shot despite education.
[2017-03-09 04:06] LABS: APPEARANCE,URINE CLEAR (CLEAR,HAZY); COLOR,URINE STRAW (YELLOW); OCCULT BLOOD,URINE NEGATIVE (NEGATIVE); UROBILINOGEN,URINE NORMAL (NORMAL)
[2017-03-09 04:12] VITALS: BP 162/67; PULSE 75; RESP 18; O2SAT 98
[2017-03-09 08:34] LABS: Mean Corpuscular Hemoglobin 30.4 pg (27.0-35.0); Mean Corpuscular Volume 93.8 fL (81-100)
[2017-03-09] MEDS ORDERED: ENAL10TA PO ×2 (08:38→10:26)
[2017-03-09] MEDS ORDERED: AMOX-366 PO ×3 (08:39→10:26)
[2017-03-09] MEDS ORDERED: AMLO5TAB2 PO ×2 (08:39→10:21)
[2017-03-09] MEDS ORDERED: CIPR-198 PO (08:45)
[2017-03-09] MEDS ORDERED: LACT1CAP13 PO (08:45)
[2017-03-09] MEDS ORDERED: 0.9% Sodium Chloride 250 ML ONE (08:51)
--- NOTE | 2017-03-09 10:19 | PCM.DIMED ---
Discharge Instructions Date of Service Mar 09, 2017 Dates of Hospitalization Mar 04, 2017 at 23:11 Discharge Diagnosis Discharge Diagnosis Cellulitis, HTN, BPH, GOUT, CAD Diet Heart Healthy Activity Home Health Phyical Therapy Call your provider Fever or Chills, Shortness of breath, Bleeding, Vomitting, Excessive diarrhea, Weakness (unilateral), Other Patient Instructions Follow-up plan F/U with PCP in 7-10 days Daily home care nursing for 3 weeks then as decided by the PCP Bettie Slaughter DO Mar 09, 2017 10:19
--- NOTE | 2017-03-09 10:27 | PCM.DC.MED ---
Discharge Summary Date of Service Mar 09, 2017 Dates of Hospitalization Date of Hospital Admission Mar 04, 2017 at 23:11 Date of Discharge: Mar 08, 2017 Providers: Admitting Physician: Yehuda Quigley MD Primary Care Physician: Opal Fontanez MD Attending Physician: Yehuda Quigley MD Diagnosis at Time of Discharge Diagnosis at Time of Discharge Cellulitis, HTN, BPH, GOUT, CAD Consultations Physical therapy Brief History Mr. Strickland is a pleasant, yet not reliable historian, that presented to [facility] at the request of his primary care provider for suspected ongoing and worsening of bilateral lower extremity cellulitis, R > L. he was admitted for evaluation and treatment of bilateral lower extremity cellulitis in the setting of failed outpatient therapy. Hospital day 1 Mr. Strickland is unable to provide many details about his medical history, including other medical conditions that he has been diagnosed with, and is unable to answer succinctly to questions proposed. He does recall he was recently seen [facility] for his right lower extremity, which he says was infected. He states his symptoms began approximately 2 months ago, where he noticed some punctate lesions of unknown etiology that began weeping. He says he has received antibiotics in the past, but is unable to recall any of the names. He states that while he was at [facility], they were recommending that they place what sounds to be like a PICC line, but he refused , and was discharged on oral medications. Again, he is unable to recall the name or any specifics about outpatient medication. It also sounds as if he refused to be seen at the wound care center, due to a complication in the paperwork that they were requesting that he sign. He states that he has been taking care of the wounds himself, and denies any associated fever, chills, nausea, vomiting, abdominal pain, or any increase in pain of bilateral lower extremities. He does make a note of urinary frequency and difficulty, and he shares his experience with catheterization at [facility], and at that point in time, he noticed blood in his urine. He states that he no longer sees blood in his urine, but reports that he frequently has to get up at night to urinate. Denies any associated dysuria. In the ED, temperature 36.2, pulse 69, respiratory rate 16, blood pressure 180/ 79, 96% on room air; initial labs revealed WBC 6.0, hemoglobin 13.9, creatinine 0.73, lactic acid 1.0. Blood cultures were obtained and sent to the lab. Right venous duplex was obtained, without evidence of DVT. He was transferred to [facility] in stable condition Hospital Course Mr. Strickland is a pleasant, yet not reliable historian, that presented to [facility] at the request of his primary care provider for suspected ongoing and worsening of bilateral lower extremity cellulitis, R > L. he was admitted for evaluation and treatment of bilateral lower extremity cellulitis in the setting of failed outpatient therapy. Hospital day 1 Bilateral lower extremity non-purulent cellulitis, acute, present on admission. Under evaluation - Patient reports recent hospitalization at [facility] for right lower extremity cellulitis - Was seen by PCP day of admission, recommended to go to nearest ED - Patient unable to recall outpatient medications; and denies any follow-up with wound care; denies any h/o DM or neuropathy - In ED, recv'd ceftriaxone and vancomycin - Continued: Ceftriaxone and vancomycin - Await blood cultures - ASO titer, S. pneu Ag - Labs: PCT, electrolytes, WBC - MRSA swab - Wound care consultation - Consider infectious disease consultation if no improvement in symptoms - Records request to [facility] placed - PT eval for mobility -- Requested PCP records and his [facility], visit records -- Ordered DVT ultrasound of the left leg: Negative -- Records from his [facility] admission are obtained and reviewed. He apparently had VRE sensitive to Augmentin, Pseudomonas sensitive to Cipro based on the cultures and this is what they had discharged him on. Patient states that he completed the course. -- Deep tissue wound culture is obtained sent to the lab. He started on Zosyn, again based on his cultures from [facility] admission -- We will follow the new cultures to make sure he is appropriately treated: Few gram-positive cocci, variable gram-negative rods -- Clinically much improved today. White count and pro calcitonin continue to be low -- Patient refuses to go to [facility] because of financial issues, he did not want to go to another SNF. His PCP has called yesterday and she also concurs, as her choice was to send him to senior care. He decreased her daily home care health. We feel that this will help him to better care for his wounds, and be able to live without needing hospitalizations for wound care. -- . Augmentin plus Cipro for one week for discharge, probiotics to prevent C. difficile Hypertension, chronic -- Patient came here with 10 mg of enalapril daily, his blood pressure has been initiated during this admission. -- Currently he is on 20 mg of enalapril +10 mg of Norvasc. -- We will continue to monitor, seems to be doing better at this time Increase urinary frequency without dysuria, chronicity unknown. Under evaluation - Patient reports recent hematuria and nocturia without dysuria -- Stable - DDx: May be secondary to BP PH considering patient age; also consideration of UTI - Recommend outpatient follow-up -- Previous hospitalization records show hematuria thought to be secondary to BPH Goals of care. - Patient appeared confused about CODE STATUS - Stated he "wants everything done" but "without heroic measures" - He did not seem to understand that CPR/intubation can be considered heroic measures - He wants to defer decision to , whom is not present - He states he has paperwork "somewhere" but "wants to try" if something were to happen - Consider palliative consult patient remains in hospital through weekend -- Patient has no assigned power of fitness centre manager. -- Called son Khoa at his home phone number, he says that his goal is that patient goes back to living in an independent setting as before. He feels that his dad may have suffered a small stroke and some left-sided arm weakness as a result few days ago while visiting his at the halfway. But generally does not think his dad had any medical attention for it, he also says that his dad declined wound care follow-up. Patient does receive home care to help per Kyree, his other son lives nearby -- PRN: Bowel/fever/pain/antiemetic DVT: Heparin every 8 Diet: General GI: Not indicated CODE STATUS: Full code Patient status: Due to severity of presenting symptoms, risk of adverse events, and likely course of care, anticipated length of stay is greater than 2 midnights; patient admitted as inpatient Exam Vital Signs (Last) Date Time Temp Pulse Resp B/P Pulse Ox O2 Delivery O2 Flow Rate FiO2 03/09/17 04:12 36.6 75 18 162/67 98 Room Air Exam Gen. pleasant elderly male HEENT normocephalic, atraumatic Extremities: Much improved today, his redness is much below the demarcated lines. Swelling improved as well. His feet are normal temperature to touch. 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 Psych: Negative for anxiety Test 03/04/17 08:55 03/05/17 06:02 03/05/17 06:05 03/06/17 10:32 Hold Urine Received (Received) Neutrophils (%) (Auto) 61.1% (40-74) Lymphocytes (%) (Auto) 16.6% (14-46) Monocytes (%) (Auto) 19.2% (4-12) Eosinophils (%) (Auto) 2.9% (0-5) Basophils (%) (Auto) 0% (0-3) Lactic Acid Level 0.7mmol/L (0.4-2.0) Phosphorus Level 2.9mg/dL (2.5-4.9) Magnesium Level 2.1mg/dL (1.6-2.6) Streptozyme 58.8IU/mL (0.0-200.0) Vancomycin Level Trough 8.1mcg/mL Test 03/08/17 05:40 03/08/17 23:54 03/09/17 08:08 Sodium Level 143mEq/L (134-144) Potassium Level 3.7mEq/L (3.5-5.2) Chloride Level 107mEq/L (97-108) Carbon Dioxide Level 22mmol/L (18-29) Blood Urea Nitrogen 16mg/dL (8-27) Creatinine 0.91mg/dL (0.76-1.27) Estimat Glomerular Filtration Rate 83mL/min (>59) Glucose Level 118mg/dL (60-99) Calcium Level 9.2mg/dL (8.5-10.1) Total Bilirubin 0.6mg/dL (0.0-1.2) Aspartate Amino Transf (AST/SGOT) 13U/L (0-50) Alanine Aminotransferase (ALT/SGPT) 11U/L (0-44) Alkaline Phosphatase 77U/L (25-160) Total Protein 6.1g/dL (6.4-8.4) Albumin 3.6g/dL (3.4-5.0) Procalcitonin 0.05ng/mL (0.00-0.08) Urine Color Straw (YELLOW) Urine Appearance Clear (CLEAR,HAZY) Urine pH 7.0 (5.0-8.0) Urine Specific Ione 1.005 (1.003-1.035) Urine Protein Negativemg/dL (NEG,TRACE) Urine Glucose (UA) Negativemg/dL (NEGATIVE) Urine Ketones Negativemg/dL (NEGATIVE) Urine Occult Blood Negative (NEGATIVE) Urine Nitrite Negative (NEGATIVE) Urine Bilirubin Negative (NEGATIVE) Urine Urobilinogen Normalmg/dL (NORMAL) Urine Leukocyte Esterase Negative (NEGATIVE) Urine RBC 0-2/hpf (0-2) Urine WBC 0-5/hpf (0-5) Urine Epithelial Cells Occasional/hpf (NONE-MOD) Urine Crystals None seen (NONE SEEN) Urine Bacteria None/hpf (NONE-FEW) Urine Hyaline Casts None/lpf (NONE) Urine Granular Casts None seen (NONE SEEN) Urine Waxy Casts None seen (NONE SEEN) Urine Red Blood Cell Casts None seen (NONE SEEN) Urine White Blood Cell Casts None seen (NONE SEEN) Urine Mucus None seen (None Seen) Urine Trichomonas None seen (NONE SEEN) Urine Yeast None (NONE SEEN) Urinalysis Comment None Urine Culture Reflexed Not indicated White Blood Count 5.2th/mm3 (3.8-10.1) Red Blood Count 4.34mil/mm3 (4.40-5.80) Hemoglobin 13.2g/dL (13.8-17.2) Hematocrit 40.7% (41.0-50.0) Mean Corpuscular Volume 93.8fL (81-100) Mean Corpuscular Hemoglobin 30.4pg (27.0-35.0) Mean Corpuscular Hemoglobin Concent 32.4% (32.0-37.0) Red Cell Distribution Width 13.9% (12.3-15.4) Platelet Count 192bil/L (150-400) Discharge Medications Discharge Medications Allopurinol (Allopurinol) 100 Mg Tablet 100 MG PO DAILY (Reported) Amlodipine (Amlodipine) 5 Mg Tablet 10 MG PO DAILY Prescribed by: BETTIE GUY DO Amoxicillin/Clav K 875-125 mg (Augmentin 875-125 mg) 1 Each Tablet 1 TABLET PO BID Prescribed by: BETTIE GUY DO Ciprofloxacin (Ciprofloxacin) 500 Mg Tablet 500 MG PO BID Prescribed by: BETTIE GUY DO Clopidogrel (Clopidogrel) 75 Mg Tablet 75 MG PO DAILY (Reported) Enalapril Maleate (Enalapril Maleate) 10 Mg Tablet 20 MG PO DAILY Prescribed by: BETTIE GUY DO Lactobacillus Acidophilus (Acidophilus) 1 Each Capsule 1 EACH PO BID Prescribed by: BETTIE GUY DO Metoprolol Tartrate (Metoprolol Tartrate) 25 Mg Tablet 12.5 MG PO BID (Reported ) Pravastatin (Pravastatin) 20 Mg Tablet 20 MG PO HS (Reported) Tamsulosin (Flomax) 0.4 Mg Capsule 0.4 MG PO HS (Reported) As needed Nitroglycerin SL (Nitroglycerin SL) 0.4 Mg Tab.subl 0.4 MG SL Q5MIN PRN PRN For Chest Pain (Reported) Followup Plan Follow-up plan F/U with PCP in 7-10 days Daily home care nursing for 3 weeks then as decided by the PCP Discharge Diet: Heart Healthy Discharge Activity: Home Health Phyical Therapy Bettie Guy DO Mar 09, 2017 10:27
--- NOTE | 2017-03-09 10:50 | NUR ---
Social Work: Discharge Data: Pt is on day 5 of hospitalization. SW met with pt to confirm he wants to discharge home and resume [facility] RN/PT/CAMPUS WELLNESS COORDINATOR. Dr. Slaughter recommends pt go to a SNF but pt declines SNF and stated they want to go home with HH. CAMERON called osiel Adorno to confirm pt is being discharged today. Osiel Adorno confirmed he will transport pt home VIA POV today at 3pm. SW will fax resume HH orders to [facility]. Assessment: Pt who will benefit from continued HH at discharge. Plan: Osiel Adorno will pick pt up today at 3pm. Pt will go home to resume HH RN/PT/CAMPUS WELLNESS COORDINATOR with [facility]. JOHN Ho
--- NOTE | 2017-03-09 12:25 | NUR ---
Pt resumed Jon STANTON RN/PT/JOHN BARNES faxed discharge orders and directions to [facility] to resume RN/PT/JOHN. JOHN Ho Addendum: 03/09/17 at 1446 by DAVID HULL SS CAMERON received a call from Jon STANTON requesting wound care notes, which CAMERON has faxed. JOHN Garay
[2017-03-09 14:35] VITALS: BP 126/67; PULSE 67; RESP 16; O2SAT 100
--- NOTE | 2017-03-09 16:45 | NUR ---
Discharge Pt d/c'd home at approx 1640. Reviewed d/c instructions w/ patient and his son and answered all questions. IV d/c'd intact. RX faxed to [facility] pharmacy. Pt left via w/c to son's POV and left w/ all belongings. Dressing change completed prior discharge.
== END 2017-03-09 16:40 | disposition home health service (06) | DRG 603 ==
LOC: SED 20:18 → OSC 23:11
PROVIDERS: ADMIT Hospitalist; ATTEND Hospitalist
DX: L03.116 Cellulitis of left lower limb (principal); L03.115 Cellulitis of right lower limb; I87.2 Venous insufficiency (chronic) (peripheral); Z79.82 Long term (current) use of aspirin; R35.0 Frequency of micturition; I10 Essential (primary) hypertension